=== PATIENT | male | born 1985 | race Caucasian/White ===

== ENCOUNTER 2019-10-07 07:39 | Inpatient (IN) | payer BC ==
[~2019-10-07] VITALS: Ht 182.9 cm; Wt 106.6 kg
[2019-10-07 07:57] VITALS: Ht 182.9 cm; Wt 106.6 kg
[2019-10-07 09:30] LABS: microscopic required? NO
[2019-10-07 09:39] LABS: BASOPHIL % 1.6 % (0-2); PLATELET COUNT 135 x10^3mcL (130-400); RED CELL DISTRIBUTION WIDTH 13.1 % (11.5-14.5)
[2019-10-07 10:31] LABS: UA SPECIFIC GRAVITY >1.030 (1.005-1.035)
[2019-10-07 10:32] LABS: urine erythrocyte NEGATIVE (NEGATIVE)
[2019-10-07 12:07] LABS: ALKALINE PHOSPHATASE 68 U/L (46-116); ALT/SGPT 49 U/L (16-63); AST/SGOT 20 U/L (15-37); BILIRUBIN TOTAL 0.4 mg/dL (0.20-1.00); CALCIUM 9.2 mg/dL (8.5-10.1); CARBON DIOXIDE 30.4 mmol/L (21-32); CHLORIDE SERUM 101 mmol/L (98-107); GFR1 > 60 mL/min; GLUCOSE SERUM 103 mg/dL (74-106); LIPASE 163 IU/L (73-393); POTASSIUM SERUM 4.9 mmol/L (3.5-5.1); SODIUM SERUM 137 mmol/L (136-145); TOTAL PROTEIN, SERUM 7.5 g/dL (6.4-8.2)
[2019-10-07 12:46] VITALS: BP 118/64
[2019-10-07 14:10] LABS: CHOLESTEROL/HDL RATIO 4.8; MAGNESIUM 1.9 mg/dL (1.8-2.4); PHOSPHOROUS 2.7 mg/dL (2.5-4.9)
[2019-10-07 16:08] VITALS: BP 122/63
[2019-10-08 05:33] VITALS: BP 108/65
[2019-10-08 06:25] LABS: RED CELL DISTRIBUTION WIDTH 13.5 % (11.5-14.5)
[2019-10-08 06:45] LABS: CALCIUM 8.4 mg/dL (8.5-10.1); CARBON DIOXIDE 30.5 mmol/L (21-32); CHLORIDE SERUM 99 mmol/L (98-107); CREATININE SERUM 0.9 mg/dL (0.7-1.3); GFR1 > 60 mL/min; GLUCOSE SERUM 114 mg/dL (74-106); POTASSIUM SERUM 4.2 mmol/L (3.5-5.1); SODIUM SERUM 134 mmol/L (136-145)
[2019-10-08 07:33] LABS: BASOPHIL % 0 % (0-2); PLATELET COUNT 129 x10^3mcL (130-400)
[2019-10-08 09:13] VITALS: BP 125/69
[2019-10-08 10:15] VITALS: BP 125/69
== END 2019-10-08 12:28 | disposition home or self-care (01) | DRG 419 ==
LOC: ED 07:39 → MU 10:41
PROVIDERS: Emergency Medicine; Surgery; ADMIT Family Medicine
PROC: 0FT44ZZ Resection of Gallbladder, Percutaneous Endoscopic Approach (ICD-10-PCS; principal; 2019-10-07 18:30)
DX: K80.00 Calculus of gallbladder with acute cholecystitis without obstruction (principal); D72.829 Elevated white blood cell count, unspecified
CPT/HCPCS: G0378; J1885; J2175; J2250; J2405; J2543; J3010; J3490; J7030